=== PATIENT | male | born 1970 ===

== ENCOUNTER 2021-08-12 10:13 | Emergency (ER) | payer OTHER, SELFPAY ==
[2021-08-12 10:42] VITALS: BP 144/86; PULSE 65; RESP 18; TEMP 36.7; O2SAT 96; BMI 27.1
--- NOTE | 2021-08-12 11:09 | ED_ITS ---
HPI - Dizziness General: Chief Complaint: Dizziness Stated Complaint: Dizziness, vomiting Time Seen by Provider: 08/12/21 11:06 History of Present Illness: HPI Narrative: This patient presents to emergency department by private vehicle because of dizziness. He states symptoms began yesterday morning. He states he was laying in bed and states he rolled over to say good morning to his and was had an onset of spinning sensation. He states his symptoms improved some as he laid in bed and then he got up and the symptoms returned. He states he became sick at his stomach and vomited. He states the symptoms would improve and then with certain movements such as turning his head or rising quickly his symptoms would briefly return. He states he eventually felt well enough to eat a normal meal normal activity. He denied any headache, difficulty with speech, difficulty with walking other than he momentarily was unsteady when he initially change po sitions but that abated. There was no other neurologic symptoms whatsoever. He is not recently been ill. He does not smoke cigarettes or drink alcohol. He had COVID-19 last year and was hospitalized in [facility] but has had no ongoing post Covid symptoms. He is here today because he woke up this morning with another recurrence of his symptoms again associated with turning his head or positional changes. No change in hearing. No history of M?ni?re's disease etc. No history of migraine headaches. No history of prior vertigo. MD elicited complaint: vertigo Timing: sudden onset Description: room spinning Context: change in body position History of similar symptoms: No Exacerbating factors: change in body position Relieving factors: remaining still Associated symptoms: Reports no associated symptoms, nausea and vomiting; Denies change in hearing, chest pain, chills, headache(s), palpitations or tinnitus Associated neuro symptoms: Reports no associated symptoms; Deny confusion or numbness in extremities Review of Systems Const: Denies: fever(s), chills or body aches Eyes: Denies: change in vision or blurry vision ENMT: Denies: throat pain, odynophagia, mouth pain, change in hearing, t innitus, nasal discharge or sinus pain Card: Denies: chest pain, palpitations or irregular heart rhythm Resp: Denies: dyspnea, productive cough or non-productive cough GI: Reports: nausea and vomiting; Denies: abdominal pain or diarrhea : Denies: flank pain, difficulty urinating, dysuria or urinary frequency Musc: Denies: neck pain, back pain, extremity pain or extremity swelling Skin/Breast: Denies: rash or pruritus Neuro: Reports: vertigo; Denies: headache(s), numbness in extremities, weakness in extremities, sensory changes, difficulty walking, frequent falls, confusion, Slurred speech present, difficulty communicating thoughts, seizure-like activity or involuntary movements Psych: Denies: anxiety or depression Deven/Lymph: Denies: easy bruising or easy bleeding Physical Exam Narrative: EXAM NARRATIVE: Patient's alert. He makes good eye contact speech is goal-directed. Const: COMMON NORMALS: no acute distress, average body habitus and patient oriented x3 HENMT: COMMON NORMALS: normocephalic, atraumatic, EAC's normal, TM's normal bilaterally, Normal external nose present and Normal nasal mucous membranes and turbinates present HEAD & SCALP: normal to inspection, normocephalic and atraumatic; no scalp tenderness FACE & SINUS: normal facial exam and face symmetric; sinuses not nontender NOSE: Normal external nose present and Normal nasal mucous membranes and turbinates present EXTERNAL EAR: Yes mastoids normal EXTERNAL AUDITORY CANAL: EAC's normal TYMPANIC MEMBRANE: TM's normal bilaterally MOUTH: Normal oral and palatal mucosa present and tongue normal THROAT: posterior oropharynx normal Eye: COMMON NORMALS: Equal, round and reactive pupils present, EOMs intact bilaterally and conjunctivae normal CONJUNCTIVA: Yes conjunctivae normal PUPIL: Yes Equal, round and reactive pupils present Neck/C-Spine: COMMON NORMALS: full ROM, no lymphadenopathy, supple and No carotid bruits Lymph: LYMPHATIC: no lymphadenopathy noted : COMMON NORMALS: Yes no CVA tenderness BLADDER/KIDNEY EXAM: Yes no CVA tenderness Back/Pelvis: COMMON NORMALS: no CVA tenderness, thoracic and lumbar spine normal to inspection, no thoracic nor lumbar tenderness, thoraco-lumbar ROM normal and straight leg raise negative bilaterally Extremity: COMMON NORMALS: normal to inspection, full ROM, no joint enlargement, no calf tenderness and no pedal edema Neuro: COMMON NORMALS: patient oriented x3, moves all extremities, no focal motor deficits, no sensory deficits noted and gait normal CRANIAL NERVES: Yes other (Patient displayed no nystagmus at rest and therefore hints exam not perform) COORDINATION/BALANCE: [id number] test normal and [id number] test normal SPEECH: speech normal GAIT: Yes Normal gait present MOTOR EXAM: 5/5 motor strength present throughout COORDINATION: [id number] test normal and [id number] test normal OTHER: Von-Hallpike maneuver was performed. The patient's symptoms were reproduced particular with head to the right. He was noted to have some brief episode of nystagmus followed by subjective vertigo and nausea with one episode of vomiting. Symptoms abated after approximately 2 minutes. He states he actually felt much improved after that maneuver. Psych: COMMON NORMALS: mental status grossly normal and Normal thought process present THOUGHT PROCESS: Normal thought process present Course Reevaluation(s): Reevaluation #1: Patient was reevaluated. He subjectively states that he was feeling quite a bit better. He was reevaluated and found to have no focal findings on his neurologic examination. He was able to stand and walk unaided with a normal gait. Time: 14:29 Vital Signs: Vital signs: Vital Signs Temperature 98.0 F 08/12/21 10:42 Pulse Rate 60 08/12/21 12:56 Respiratory Rate 15 08/12/21 12:56 Blood Pressure 117/85 08/12/21 12:56 Pulse Oximetry 97 08/12/21 12:56 MDM - Dizziness Medical Decision Making Current findings today do not suggest a central etiology to his vertigo. The intermittent and provoked nature with spontaneous resolution as well as his positive [place] Von-Hallpike in response to both Isiah and benzodiazepines are reas suring. I discussed the low likelihood of a serious etiology to his current condition. His chemistries and sed rate are also reassuring. He voiced understanding of our discussion. We will provide him a several day course of benzodiazepines and antiemetics to use as needed. We also discussed return p recautions in detail which he acknowledged. Stable for discharge at this time. Lab Data I reviewed the patient's lab results. : 08/12/21 12:27 08/12/21 12:27 Laboratory Results WBC 11.9 10^3/uL (4.0-10.0) H 08/12/21 12:27 Corrected WBC Cancelled 08/12/21 11:24 RBC 5.45 10^6/uL (4.1-5.3) H 08/12/21 12:27 Hgb 16.0 g/dL (11.7-16.6) 08/12/21 12: Hct 47.4 % (42.0-52.0) 08/12/21 12: MCV 87.0 fl (80-94) 08/12/21 12: MCH 29.4 pg (28.0-34.0) 08/12/21 12: MCHC 33.8 g/dL (30.0-36.0) 08/12/21 12: RDW 11.6 % (12.1-15.1) L 08/12/21 12: Plt Count 208 10^3/cmm (130-400) 08/12/21 12: MPV 11.1 fL (7.4-10.4) H 08/12/21 12: Gran % Cancelled 08/12/21 11:24 Neut % (Auto) 90.5 % 08/12/21 12: Lymph % (Auto) 6.6 % 08/12/21 12: [place] % (Auto) 2.0 % 08/12/21 12: Eos % (Auto) 0.3 % 08/12/21 12: Baso % (Auto) 0.3 % 08/12/21 12: Neut # (Auto) 10.80 10^3/uL (1.8-7.7) H 08/12/21 12: Lymph # (Auto) 0.8 10^3/uL (0.8-4.8) 08/12/21 12: [place] # (Auto) 0.2 10^3/uL (0.2-0.9) 08/12/21 12: Eos # (Auto) 0.0 10^3/uL (0.0-0.8) 08/12/21 12: Baso # (Auto) 0.0 10^3/uL (0.0-0.1) 08/12/21 12: Absolute Gran (auto) Cancelled 08/12/21 11:24 Nucleated RBC % (auto) 0 % 08/12/21 12: Nucleated RBCs # 0.0 /100WBC 08/12/21 12: ESR 3 mm/hr (0-10) 08/12/21 12: Sodium 137 mmol/L (136-145) 08/12/21 12:27 Potassium 4.2 mmol/L (3.5-5.1) 08/12/21 12:27 Chloride 101 mmol/L (98-107) 08/12/21 12:27 Carbon Dioxide 25 mmol/L (22-29) 08/12/21 12:27 Anion Gap 15.2 (5-19) 08/12/21 12:27 BUN 24 mg/dL (6-20) H 08/12/21 12:27 Creatinine 0.9 mg/dL (0.7-1.2) 08/12/21 12:27 GFR Calculation 89.7 mL/min (90-130) L 08/12/21 12:27 Glucose 98 mg/dL (65-115) 08/12/21 12:27 Calculated Osmolality 288 mOsm/kg (285-295) 08/12/21 12:27 Calcium 9.8 mg/dL (8.5-10.5) 08/12/21 12:27 Discharge Plan Discharge Patient Disposition: Home Clinical Impression: Acute vestibular syndrome Condition: Stable Prescriptions: New Valium 5 mg tablet 5 mg PO DAILY PRN (Reason: vertigo) Qty: 7 0RF ondansetron HCl [Zofran] 4 mg tablet 4 mg PO Q8H PRN (Reason: nausea and vomiting) 4 Days Qty: 10 0RF Discharge Orders: Discharge ED (Routine); Ordered 08/12/21 Ordered By: Per Whalen Discharge Diet: Usual diet Discharge Activity: Increase activity as tolerated Patient Instructions: Benign Paroxysmal Positional Vertigo (ED), Opioid Safety Activity Restrictions/Additional Instructions: You may use the Valium once daily as needed to help with your vertigo symptoms. You may also use the Zofran as needed if you have nausea. Should you develop persistent and consistent vertigo, return to this or the nearest emergency department. Should you also develop other symptoms such as headache, weakness, difficulty with speech, difficulty with walking etc. return to this emergency department for further evaluation. Coding Level of Care Code ED [employer] for Sj Rae Exam Comprehensive
[2021-08-12 11:14] VITALS: BP 125/92; PULSE 94; RESP 15; O2SAT 99
[2021-08-12] MEDS: ondansetron 4 MG Tablet PO (11:51)
[2021-08-12] MEDS: diazePAM 5 mg Tablet PO (11:51)
[2021-08-12 12:49] LABS: Basophils % 0.3 %; Eosinophils % 0.3 %; Hematocrit 47.4 % (42.0-52.0); Lymphocytes # 0.8 10^3/uL (0.8-4.8); Lymphocytes % 6.6 %; Mean Corpuscular HGB Conc 33.8 g/dL (30.0-36.0); Mean Corpuscular Hemoglobin 29.4 pg (28.0-34.0); Mean Platelet Volume 11.1 fL (7.4-10.4); Monocytes # 0.2 10^3/uL (0.2-0.9); Neutrophils % 90.5 %; Nucleated Red Blood Cells % 0 %; Platelet Count 208 10^3/cmm (130-400); Red Blood Count 5.45 10^6/uL (4.1-5.3); Red Cell Distribution Width 11.6 % (12.1-15.1); White Blood Count 11.9 10^3/uL (4.0-10.0)
[2021-08-12 12:56] VITALS: BP 117/85; PULSE 60; RESP 15; O2SAT 97
[2021-08-12 13:03] LABS: Erythrocyte Sedimentation Rate 3 mm/hr (0-10)
[2021-08-12 13:13] LABS: Anion Gap 15.2 (5-19); Blood Urea Nitrogen 24 mg/dL (6-20); Calcium 9.8 mg/dL (8.5-10.5); Carbon Dioxide 25 mmol/L (22-29); Chloride 101 mmol/L (98-107); Glomerular Filtration Rate 89.7 mL/min (90-130); Glucose 98 mg/dL (65-115); Osmolality Calculated 288 mOsm/kg (285-295); Potassium 4.2 mmol/L (3.5-5.1); Sodium 137 mmol/L (136-145)
[2021-08-12 14:44] VITALS: BP 146/86; PULSE 68; RESP 20; O2SAT 99
== END 2021-08-12 14:45 | disposition home or self-care (01) ==
PROVIDERS: Emergency Provider Emergency Medicine
DX: H81.90 Unspecified disorder of vestibular function, unspecified ear (principal)
CPT/HCPCS: 80048; 85025; 85651; 99283; Q0162